=== PATIENT | female | born 1995 | race Hispanic/Latino ===

== ENCOUNTER 2020-12-14 22:47 | Emergency (ER) | payer MEDICAID, OTHER ==
[~2020-12-14 22:47] MED LIST: ACET1TAB12 PO; FERR325T22 PO
[2020-12-14 23:22] LABS: APPEARANCE,URINE Cloudy (CLEAR); BILIRUBIN,URINE Negative (NEGATIVE); COLOR,URINE Yellow (YELLOW); GLUCOSE, URINE (UA) Negative (NEGATIVE); KETONES,URINE Negative (NEGATIVE); LEUKOCYTE ESTERASE ,URINE Moderate (NEGATIVE); NITRATE,URINE Negative (NEGATIVE); OCCULT BLOOD,URINE Negative (NEGATIVE); PH,URINE >=9.0 (5.0-8.0); PROTEIN,URINE POS 1+ mg/dL (NEGATIVE)
[2020-12-14 23:30] LABS: AMPHET/METH SCREEN,URINE NEGATIVE (NEGATIVE); BARBITURATE SCREEN, URINE NEGATIVE (NEGATIVE); BENZODIAZEPINES SCREEN,URINE NEGATIVE (NEGATIVE); CANNABINOID SCREEN,URINE NEGATIVE (NEGATIVE); COCAINE SCREEN,URINE NEGATIVE (NEGATIVE); OPIATE SCREEN,URINE NEGATIVE (NEGATIVE); PHENCYCLIDINE SCREEN,URINE NEGATIVE (NEGATIVE)
[2020-12-14 23:57] LABS: BACTERIA,URINE Few /HPF (None Seen); RBC,URINE 0-1 /HPF (0-1); SQUAMOUS EPITHELIAL CELL,UR Moderate /HPF (0-2); YEAST,URINE BUDDING Rare /HPF (None Seen)
[2020-12-14] MEDS ORDERED: CEFTRIAXONE SODIUM 1 GM ONE (23:57)
[2020-12-14 23:58] LABS: HCG,QUAL RESULT NEGATIVE (NEGATIVE)
[2020-12-15] MEDS ORDERED: KETOROLAC TROMETHAMINE 30MG/ML ONE (00:02)
[2020-12-15] MEDS ORDERED: SODIUM CHLORIDE 0.9% 1000ML 1,000 ML IV ONE (00:06)
[2020-12-15 00:19] LABS: ALBUMIN 3.7 g/dL (3.5-5.0); BILIRUBIN,TOTAL 0.2 mg/dL (0.2-1.0); CREATININE 0.7 mg/dL (0.5-1.5); POTASSIUM 3.6 mmol/L (3.5-5.1); TOTAL PROTEIN, SERUM 8.2 g/dL (6.0-8.3)
[2020-12-15 00:33] LABS: BASOPHILS % (AUTO) 0.6 % (0.0-5.0); EOSINOPHILS % (AUTO) 1.3 % (0.0-8.0); HEMATOCRIT 36.3 % (36-48); LYMPHOCYTES % (AUTO) 25.9 % (21.0-51.0); MEAN CORPUSCULAR HEMOGLOBIN 27.8 pg (27.0-33.0); MEAN CORPUSCULAR VOLUME 87.1 fL (79-99); MONOCYTES % (AUTO) 5.7 % (3.0-13.0); NEUTROPHILS % (AUTO) 66.1 % (40.0-77.0); PLATELET COUNT (AUTO) 416 K/uL (130-400); RED BLOOD CELL COUNT(AUTO) 4.17 MIL/uL (4.00-5.50); RED CELL DISTRIBUTION WIDTH 13.4 % (11.0-15.5); WHITE BLOOD COUNT (AUTO) 10.2 K/uL (4.8-10.8)
== END 2020-12-15 01:02 | disposition home or self-care (01) ==
LOC: EDH 22:47
DX: N39.0 Urinary tract infection, site not specified (principal); F10.10 Alcohol abuse, uncomplicated
CPT/HCPCS: 36415; 80053; 80305; 81001; 81025; 85025; 87088; 96365; 96375; 99284; J0696; J1885; J7030

== ENCOUNTER 2021-09-16 07:56 | Emergency (ER) | payer MEDICAID, OTHER ==
[~2021-09-16] VITALS: Ht 154.9 cm; Wt 93.0 kg
[2021-09-16 08:42] LABS: BASOPHILS % (AUTO) 0.3 % (0.0-5.0); EOSINOPHILS % (AUTO) 1.1 % (0.0-8.0); HEMATOCRIT 36.3 % (36-48); LYMPHOCYTES % (AUTO) 25.7 % (21.0-51.0); MEAN CORPUSCULAR HEMOGLOBIN 27.1 pg (27.0-33.0); MEAN CORPUSCULAR VOLUME 84.8 fL (79-99); MONOCYTES % (AUTO) 5.4 % (3.0-13.0); NEUTROPHILS % (AUTO) 67.2 % (40.0-77.0); PLATELET COUNT (AUTO) 320 K/uL (130-400); RED BLOOD CELL COUNT(AUTO) 4.28 MIL/uL (4.00-5.50); RED CELL DISTRIBUTION WIDTH 13.4 % (11.0-15.5); WHITE BLOOD COUNT (AUTO) 6.5 K/uL (4.8-10.8)
[2021-09-16 08:52] LABS: CREATININE 0.6 mg/dL (0.5-1.5); POTASSIUM 3.7 mmol/L (3.5-5.1)
[2021-09-16 08:53] LABS: APPEARANCE,URINE Clear (CLEAR); BILIRUBIN,URINE Negative (NEGATIVE); COLOR,URINE Yellow (YELLOW); GLUCOSE, URINE (UA) Negative (NEGATIVE); KETONES,URINE Negative (NEGATIVE); LEUKOCYTE ESTERASE ,URINE Moderate (NEGATIVE); NITRATE,URINE Negative (NEGATIVE); OCCULT BLOOD,URINE Large (NEGATIVE); PROTEIN,URINE Trace mg/dL (NEGATIVE)
[2021-09-16 09:13] LABS: BACTERIA,URINE Few /HPF (None Seen)
[2021-09-16] MEDS ORDERED: ACET1TAB25 PO (11:14)
[2021-09-16 11:34] VITALS: BP 126/70
== END 2021-09-16 11:36 | disposition home or self-care (01) ==
LOC: EDH 07:56
DX: O03.4 Incomplete spontaneous abortion without complication (principal); Z79.899 Other long term (current) drug therapy
CPT/HCPCS: 36415; 76801; 80048; 81001; 84702; 85025; 86900; 86901; 87077; 87088; 87186

== ENCOUNTER 2022-02-19 12:52 | Emergency (ER) | payer MEDICAID ==
[~2022-02-19] VITALS: Ht 157.5 cm; Wt 90.3 kg
[~2022-02-19 12:52] MED LIST changes: +ACET-2079 PO
[2022-02-19 14:00] LABS: BASOPHILS % (AUTO) 0.2 % (0.0-5.0); EOSINOPHILS % (AUTO) 0.6 % (0.0-8.0); HEMATOCRIT 36.3 % (36-48); LYMPHOCYTES % (AUTO) 19.8 % (21.0-51.0); MEAN CORPUSCULAR HGB CONC 31.4 g/dL (32.0-36.0); MONOCYTES % (AUTO) 4.4 % (3.0-13.0); NEUTROPHILS % (AUTO) 74.7 % (40.0-77.0); PLATELET COUNT (AUTO) 292 K/uL (130-400); RED BLOOD CELL COUNT(AUTO) 4.22 MIL/uL (4.00-5.50); RED CELL DISTRIBUTION WIDTH 13.4 % (11.0-15.5); WHITE BLOOD COUNT (AUTO) 8.7 K/uL (4.8-10.8)
[2022-02-19 14:16] LABS: CREATININE 0.5 mg/dL (0.5-1.5); POTASSIUM 3.7 mmol/L (3.5-5.1)
[2022-02-19 14:20] LABS: ALBUMIN 3.2 g/dL (3.5-5.0); BILIRUBIN,TOTAL 0.2 mg/dL (0.2-1.0); MAGNESIUM 1.8 mg/dL (1.80-2.40); TOTAL PROTEIN, SERUM 7.9 g/dL (6.0-8.3)
[2022-02-19 14:30] VITALS: BP 134/77
[2022-02-19] MEDS ORDERED: PRED20TA3 PO (14:54)
[2022-02-19] MEDS ORDERED: PENI500T2 PO (14:54)
== END 2022-02-19 15:01 | disposition home or self-care (01) ==
LOC: EDH 12:52
DX: O99.352 Diseases of the nervous system complicating pregnancy, second trimester (principal); G51.0 Bell's palsy; K02.9 Dental caries, unspecified; Z79.899 Other long term (current) drug therapy; Z3A.14 14 weeks gestation of pregnancy
CPT/HCPCS: 36415; 80053; 83735; 85025

== ENCOUNTER 2022-07-05 09:36 | Observation (INO) | payer MEDICAID ==
[~2022-07-05] VITALS: Ht 157.5 cm; Wt 84.4 kg
[~2022-07-05 09:36] MED LIST changes: +PENI500T2 PO; +PRED20TA3 PO
[2022-07-05 09:41] VITALS: BP 118/75
[2022-07-05 10:49] LABS: APPEARANCE,URINE CLEAR (CLEAR); BILIRUBIN,URINE NEGATIVE (NEGATIVE); COLOR,URINE YELLOW (YELLOW); GLUCOSE, URINE (UA) NEGATIVE (NEGATIVE); KETONES,URINE NEGATIVE (NEGATIVE); LEUKOCYTE ESTERASE ,URINE NEGATIVE Leu/uL (NEGATIVE); NITRATE,URINE NEGATIVE (NEGATIVE); OCCULT BLOOD,URINE NEGATIVE (NEGATIVE); PH,URINE 6.5 (5.0-8.0); PROTEIN,URINE NEGATIVE (NEGATIVE); UROBILINOGEN,URINE 0.2 mg/dL (0.2-1.0)
[2022-07-05] MEDS ORDERED: OSELTAMIVIR PHOSPHATE 75 MG CAP PO SCH (11:33)
[2022-07-05] MEDS ORDERED: ACETAMINOPHEN 500 MG TABLET PO SCH (11:34)
[2022-07-05] MEDS ORDERED: GUAIFENESIN-DM 200/20 MG 10 ML PO SCH (11:35)
[2022-08-04] MEDS ORDERED: AMOX500T2 PO (14:13)
[2022-08-04] MEDS ORDERED: PREN-154 PO (14:13)
[2022-08-06] MEDS ORDERED: DOCU-116 PO (10:50)
[2022-08-06] MEDS ORDERED: IBUP-2077 PO (10:50)
[2022-08-06] MEDS ORDERED: ACET-2079 PO (10:51)
== END 2022-07-05 13:18 | disposition home or self-care (01) ==
LOC: EDBD → EDH 09:36 → LDH 09:37 → EDH 09:49
PROVIDERS: ADMIT Obstetrics & Gynecology; ATTEND Obstetrics & Gynecology
DX: O26.893 Other specified pregnancy related conditions, third trimester (principal); Z20.822 Contact with and (suspected) exposure to COVID-19; R05.9 Cough, unspecified; R10.9 Unspecified abdominal pain; O99.333 Smoking (tobacco) complicating pregnancy, third trimester; F17.200 Nicotine dependence, unspecified, uncomplicated; O99.344 Other mental disorders complicating childbirth; F32.A Depression, unspecified; Z3A.34 34 weeks gestation of pregnancy; Z91.040 Latex allergy status
CPT/HCPCS: 87804 ×2; 81003; 87635; G0378 ×3; G0379